=== PATIENT | female | born 1955 ===

== ENCOUNTER 2023-08-15 07:59 | Day surgery (SDC) | payer MEDICARE, BC, SELFPAY ==
--- NOTE | 2023-08-15 08:11 | FL_ITS ---
The [address] [address] Patient Name: VERO VERDUGO MRN: [facility]:[id number] date: 1955 Sex: F Assigned Patient Location: [place] Current Patient Location: [place] Accession/Order Number: [id number] Exam Date: 08/15/2023 08:15 Report Date: 08/15/2023 09:57 At the request of: FRIDA QUIÑONES Procedure: FL hip inj LT EXAMINATION: FL hip inj LT, FL guided needle placement HISTORY: Left Hip Osteoarthritis, Healed Pelvic Fracture COMPARISON: No relevant comparison available. TECHNIQUE: An arthrogram was performed under fluoroscopic guidance using non-ionic contrast material in the usual sterile manner after obtaining informed consent. Standard level fluoroscopic mode of operation utilized. FINDINGS: JOINT: [ NEEDLE: 25 gauge, 3.5 spinal needle. MEDICATION: 2 mL buffered 1% lidocaine for subcutaneous anesthesia. 2 mL Omnipaque-300 iodinated contrast to visualize the joint space. 40 mg Kenalog, 2 mL 0.5% bupivacaine, and 3 mL Omnipaque 300 injected into the joint space. TECHNIQUE: Anterior approach with prior localization of the femoral artery. A single stick was successful in gaining access to the joint space. CLINICAL: Improvement of joint pain post injection (2/10 preinjection; 1/10 post injection). COMPLICATIONS: None. OTHER: Negative. FL/FL hip inj LT IMPRESSION: 1. Technically successful left hip injection with slight decrease in left hip pain immediately post procedure. Electronically authenticated by: ALMA MANRIQUEZ Date: 08/15/2023 09:57
--- NOTE | 2023-08-15 08:11 | FL_ITS ---
The [address] [address] Patient Name: VERO VREDUGO MRN: [facility]:[id number] date: 1955 Sex: F Assigned Patient Location: [place] Current Patient Location: [place] Accession/Order Number: [id number] Exam Date: 08/15/2023 08:15 Report Date: 08/15/2023 09:57 At the request of: FRIDA QUIÑONES Procedure: FL guided needle placement EXAMINATION: FL hip inj LT, FL guided needle placement HISTORY: Left Hip Osteoarthritis, Healed Pelvic Fracture COMPARISON: No relevant comparison available. TECHNIQUE: An arthrogram was performed under fluoroscopic guidance using non-ionic contrast material in the usual sterile manner after obtaining informed consent. Standard level fluoroscopic mode of operation utilized. FINDINGS: JOINT: [ NEEDLE: 25 gauge, 3.5 spinal needle. MEDICATION: 2 mL buffered 1% lidocaine for subcutaneous anesthesia. 2 mL Omnipaque-300 iodinated contrast to visualize the joint space. 40 mg Kenalog, 2 mL 0.5% bupivacaine, and 3 mL Omnipaque 300 injected into the joint space. TECHNIQUE: Anterior approach with prior localization of the femoral artery. A single stick was successful in gaining access to the joint space. CLINICAL: Improvement of joint pain post injection (2/10 preinjection; 1/10 post injection). COMPLICATIONS: None. OTHER: Negative. FL/FL guided needle placement IMPRESSION: 1. Technically successful left hip injection with slight decrease in left hip pain immediately post procedure. Electronically authenticated by: ALMA MANRIQUEZ Date: 08/15/2023 09:57
[2023-08-15] MEDS: LIDOCAINE HCL 10 ML, SODIUM BICARBONATE 1 MEQ INJ (08:50)
[2023-08-15] MEDS: BUPIVACAINE HCL 0.5% PF 50 MG/10 ML VIAL 5 ML INJ (08:50)
[2023-08-15] MEDS: TRIAMCINOLONE ACETONIDE 40 MG/ML VIAL INJ (08:50)
--- NOTE | 2023-08-15 10:12 | SUR.PREOP ---
08/09/23 Instructed pt on procedure, date, time, and prep.
== END 2023-08-15 09:10 | disposition home or self-care (01) ==
LOC: FL 08:00
PROVIDERS: Radiology Diagnostic Radiology; Visit Provider Orthopaedic Surgery
DX: M16.12 Unilateral primary osteoarthritis, left hip (principal)
CPT/HCPCS: 20610; 77002; Q9967